=== PATIENT | male | born 1955 | race Caucasian/White ===

== ENCOUNTER 2019-09-21 12:49 | Day surgery (SDC) | payer BC ==
[~2019-09-21] VITALS: Ht 182.9 cm; Wt 100.3 kg
[2019-09-21] MEDS ORDERED: PRILOSEC 20MG20 MG PO (13:09)
[2019-09-21] MEDS ORDERED: CELEXA 20MG20 MG/TAB PO (13:09)
[2019-09-21] MEDS ORDERED: PRINIVIL20 MG PO (13:09)
[2019-09-21] MEDS ORDERED: HCTZ 25MG TAB25 MG PO (13:10)
[2019-09-21] MEDS ORDERED: ASPIRIN E.C. 8181 MG PO (13:10)
[2019-09-21] MEDS ORDERED: ZOCOR 10MG10 MG PO (13:11)
[2019-09-21 13:18] VITALS: BP 133/79; PULSE 78; TEMP 98.3
[2019-09-21 15:35] VITALS: BP 110/82; PULSE 64; TEMP 97.6
--- NOTE | 2019-09-21 15:35 | NUR ---
The patient arrived back to [facility] from the endoscopy suite and appears alert at this time. The patient ambulated from the cart to the recliner in his room with the assistance of two nurses and appeared to tolerate the activity well. Post procedure vital signs were started at this time. Call light is within reach. at bedside. Will continue to monitor the patient.
[2019-09-21 15:49] VITALS: TEMP 97.6
[2019-09-21 15:50] VITALS: BP 119/79; PULSE 57
--- NOTE | 2019-09-21 15:50 | NUR ---
The patient was given some chocolate pudding and a pepsi to try and appears to be tolerating both well. The patient denies wanting anything further to eat or drink at this time. The patient's vital signs appear stable, call light remains within reach. Will continue to monitor the patient.
[2019-09-21 16:05] VITALS: BP 123/88; PULSE 58
--- NOTE | 2019-09-21 16:05 | NUR ---
Dr. Jacome is at the patient's bedside discussing the findings of the procedure. Call light is within reach. at bedside.
--- NOTE | 2019-09-21 16:15 | NUR ---
Discharge instructions were reviewed with the patient and his at this time. They both verbalized understanding and have no questions for the nurse at this time. The patient's IV to his right forearm was removed and a pressure dressing was applied to the site. The nurse instructed the patient to get dressed and notify the staff when he is ready to be escorted out.
--- NOTE | 2019-09-21 16:30 | NUR ---
The patient was escorted out via wheelchair to a private vehicle by PRATEEK Rosenthal. The patient's belongings and discharge paperwork were sent with him. The patient's is present to drive him home.
== END 2019-09-21 16:20 | disposition home or self-care (01) ==
LOC: SDCO 12:49
DX: Z12.11 Encounter for screening for malignant neoplasm of colon (principal); D12.5 Benign neoplasm of sigmoid colon; K21.9 Gastro-esophageal reflux disease without esophagitis; I10 Essential (primary) hypertension; E78.00 Pure hypercholesterolemia, unspecified; Z79.82 Long term (current) use of aspirin; Z86.010 Personal history of colon polyps; Z80.0 Family history of malignant neoplasm of digestive organs
CPT/HCPCS: J2704; J7030

== ENCOUNTER 2020-03-17 07:15 | Day surgery (SDC) | payer BC ==
[~2020-03-17] VITALS: Ht 182.9 cm; Wt 102.0 kg
[~2020-03-17 07:15] MED LIST: ASPIRIN E.C. 8181 MG PO; CELEXA 20MG20 MG/TAB PO; HCTZ 25MG TAB25 MG PO; PRILOSEC 20MG20 MG PO; PRINIVIL20 MG PO; ZOCOR 10MG10 MG PO
[2020-03-17 07:27] VITALS: BP 124/88; PULSE 66; TEMP 97.6
[2020-03-17 08:55] VITALS: BP 107/74; PULSE 62; TEMP 97.5
--- NOTE | 2020-03-17 08:55 | NUR ---
PATIENT TRANSPORTED PER CART ACCOMPANIED ENDO STAFF FROM GI SUITE. PATIENT AMBULATES WITH 1 ASSIST TO CHAIR WITH STEADY GAIT. MONITORS APPLIED. VSS ON ROOM AIR. AT BED SIDE. VERBAL REPORT RECEIVED. PATIENT ALERT AND TALKING WITH STAFF. 0900 PATIENT GIVEN OJ AND MUFFIN.
[2020-03-17 09:15] VITALS: BP 110/81; PULSE 54
--- NOTE | 2020-03-17 09:15 | NUR ---
VSS. PATIENT EATS MUFFIN AND DRINKS JUICE WITHOUT PROBLEMS. PATIENT IS ALERT AND TALKING WITH . DENIES DISCOMFORT AND NAUSEA.
[2020-03-17 09:30] VITALS: BP 120/89; PULSE 55
--- NOTE | 2020-03-17 09:30 | NUR ---
VSS ON ROM AIR. DOCTOR COMES IN ROOM AND SPEAKS WITH PATIENT. 0932 DISCHARGE INSTRUCTIONS GIVEN VERBAL AND DISCHARGE PACKET GIVEN TO PATIENT. QUESTIONS ANSWERED AND PATIENT VOICED UNDERSTANDING. 0979 IV SITE DC'D WITH CATHETER INTACT. PRESSURE AND BANDAGE APPLIED. PATIENT GETTING DRESSED IN STREET CLOTHES.
--- NOTE | 2020-03-17 09:45 | NUR ---
PATIENT DISCHARGED PER WHEEL CHAIR ACOMMPANIED BY AMB STAFF. DRIVING VAN. PATIENT AMBULATED TO VAN WITH STEADY GAIT.
== END 2020-03-17 09:45 | disposition home or self-care (01) ==
LOC: SDCO
DX: Z12.11 Encounter for screening for malignant neoplasm of colon (principal); D12.5 Benign neoplasm of sigmoid colon; I10 Essential (primary) hypertension; E78.00 Pure hypercholesterolemia, unspecified; K21.9 Gastro-esophageal reflux disease without esophagitis; K44.9 Diaphragmatic hernia without obstruction or gangrene; M17.0 Bilateral primary osteoarthritis of knee; Z79.899 Other long term (current) drug therapy; Z85.038 Personal history of other malignant neoplasm of large intestine
CPT/HCPCS: J2704; J7120

== ENCOUNTER 2021-03-30 05:59 | Day surgery (SDC) | payer BC ==
[~2021-03-30] VITALS: Ht 182.9 cm; Wt 106.6 kg
[2021-03-30 06:33] VITALS: BP 130/78; PULSE 56; TEMP 97.1
[2021-03-30 07:25] VITALS: BP 115/78; PULSE 78; TEMP 97.9
--- NOTE | 2021-03-30 07:25 | NUR ---
PATIENT TRANSPORTED PER CART FROM GI SUITE TO BAY 2 ACCOMPANIED ENDO RN. PATIENT AMBULATED FROM CART TO CHAIR WITH SLOW STEADY GAIT. 1 ASSIST. MONITORS APPLIED. VSS ON ROOM AIR. IN ROOM. VERBAL REPORT RECEIVED. 0730 PATIENT EATS MUFFIN AND DRINKS JUICE. DENIES DISCOMFORT AND NAUSEA. TALKING WITH STAFF AND .
[2021-03-30 07:30] VITALS: BP 109/77; PULSE 79
[2021-03-30 07:45] VITALS: BP 123/81; PULSE 69
--- NOTE | 2021-03-30 07:45 | NUR ---
VSS ON ROOM AIR. PATIENT TOLERATES FOOD AND DRINKS. VISITS WITH .
[2021-03-30 08:00] VITALS: BP 127/82; PULSE 57
--- NOTE | 2021-03-30 08:00 | NUR ---
VSS ON ROOM AIR. PATIENT DENIES C/O'S IV DC'D WITH CATHETER TIP INTACT. PRESSURE AND BANDAGE APPLIED. DISCHARGE INSTRUCTIONS GIVEN VERBAL AND DISCHARGE PACKET PROVIDED. QUESTIONS ANSWERED AND PATIENT VOICED UNDERSTANDING. 0815 PATIENT DISMISSED PER WHEEL CHAIR ACCOMPANIED BY AMB RN TO PRIVATE VECHILE.
== END 2021-03-30 08:15 | disposition home or self-care (01) ==
LOC: SDCO 05:59
DX: Z12.11 Encounter for screening for malignant neoplasm of colon (principal); K57.30 Diverticulosis of large intestine without perforation or abscess without bleeding; K21.9 Gastro-esophageal reflux disease without esophagitis; M19.90 Unspecified osteoarthritis, unspecified site; Z85.038 Personal history of other malignant neoplasm of large intestine; Z86.010 Personal history of colon polyps; Z20.822 Contact with and (suspected) exposure to COVID-19; Z79.899 Other long term (current) drug therapy
CPT/HCPCS: J2704; J3010; J7030